=== PATIENT | female | born 1980 | race Caucasian/White ===

== ENCOUNTER 2021-03-18 15:33 | Emergency (ER) | payer OTHER | END 2021-03-18 16:51 | disposition home or self-care (01) | LOC: ER1 15:33 | DX: S42.022A Displaced fracture of shaft of left clavicle, initial encounter for closed fracture (principal); V86.59XA Driver of other special all-terrain or other off-road motor vehicle injured in nontraffic accident, initial encounter; Y92.410 Unspecified street and highway as the place of occurrence of the external cause | CPT/HCPCS: 72125; 73000; 73030; 96372; 99284; J2270 ==